=== PATIENT | female | born 1965 | race Caucasian/White ===

== ENCOUNTER 2021-10-30 08:53 | Outpatient (CLI) | payer BC, SELFPAY ==
--- NOTE | 2021-10-30 09:03 | MM_ITS ---
WS: [id number] BILATERAL SCREENING DIGITAL MAMMOGRAM WITH CAD HISTORY: SCREENING COMPARISON: 12/27/2018 and 03/24/2016 Bilateral CC and MLO views submitted. Computer aided detection analyzed. Breast composition: The breasts are heterogeneously dense, which may obscure small masses. No suspici ous masses, microcalcifications or architectural distortion. MM/[id number] IMPRESSION: BI-RADS: 1-Negative FOLLOW UP: 1 Year Follow-up
== END 2021-10-30 08:54 | disposition home or self-care (01) ==
PROVIDERS: Family Provider Family Medicine; Visit Provider Nurse Practitioner Family
DX: Z12.31 Encounter for screening mammogram for malignant neoplasm of breast (principal)
CPT/HCPCS: 77067

== ENCOUNTER 2022-11-26 08:34 | Outpatient (CLI) | payer BC, SELFPAY ==
--- NOTE | 2022-11-26 08:39 | MM_ITS ---
WS: [id number] Bilateral screening 3D tomosynthesis digital mammogram, 11/26/2022 Clinical Data: SCREENING Comparison: 10/30/2021, 12/27/2018, 03/24/2016, 03/19/2015, 03/27/2014, 03/26/2013, 10/07/2011. Findings: The breast parenchymal pattern shows heterogeneous tissue. No spiculated masses or clustered calcific ations are seen. There are no secondary signs of carcinoma. There are lymph nodes in both axilla. MM/[id number] Impression: 1. Negative bilateral mammogram unchanged. 2. Recommend annual screening mammograms. BIRADS: 1-Negative FOLLOW UP: 1 Year Follow-up The CAD amusement or recreation card checker was used.
== END 2022-11-26 08:35 | disposition home or self-care (01) ==
PROVIDERS: PCP Family Medicine; Visit Provider Family Medicine
DX: Z12.31 Encounter for screening mammogram for malignant neoplasm of breast (principal)
CPT/HCPCS: 77063; 77067

== ENCOUNTER 2025-08-06 14:31 | Outpatient (CLI) | payer BC, SELFPAY | END 2025-08-06 14:32 | disposition home or self-care (01) | LOC: SLEEP 14:32 | PROVIDERS: PCP Family Medicine; Referring Provider Nurse Practitioner Family; Visit Provider Internal Medicine Pulmonary Disease | DX: G47.33 Obstructive sleep apnea (adult) (pediatric) (principal) | CPT/HCPCS: G0399 ==